=== PATIENT | female | born 2005 | race Caucasian/White ===

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

== ENCOUNTER 2024-04-18 18:57 | Emergency (ER) | payer OTHER, SELFPAY ==
[~2024-04-18] VITALS: Ht 157.5 cm; Wt 61.4 kg
[~2024-04-18 18:57] MED LIST changes: +BACT800T5 PO; +FLOM0.4C39 PO; -METHACHOLINE KIT (J7674) INH ONE; +ONDA-282 PO; +OXYC1TAB23 PO
[2024-04-18 20:44] VITALS: BP 118/71; TEMP 96.4; O2SAT 98
== END 2024-04-18 21:01 | disposition home or self-care (01) ==
LOC: M ED 18:57
DX: S83.92XA Sprain of unspecified site of left knee, initial encounter (principal); X50.0XXA Overexertion from strenuous movement or load, initial encounter; Y92.410 Unspecified street and highway as the place of occurrence of the external cause; Y93.02 Activity, running; Y99.9 Unspecified external cause status; Z88.1 Allergy status to other antibiotic agents

== ENCOUNTER → 2024-07-09 | Outpatient (REF) | payer OTHER ==
[2024-07-09 21:19] LABS: APPEARANCE, URINE HAZY (CLEAR); BACTERIA, URINE AUTO 1+ (NEGATIVE); BILIRUBIN, URINE AUTO NEGATIVE (NEGATIVE); BLOOD, URINE BLOOD NEGATIVE (NEGATIVE); CALCIUM OXALATE CRYSTALS MODERATE; COLOR, URINE YELLOW (YELLOW); GLUCOSE, URINE (UA) AUTO NEGATIVE (NEGATIVE); KETONE, URINE AUTO TRACE mg/dL (NEGATIVE); LEUKOCYTE ESTERASE, URINE AUTO TRACE (NEGATIVE); MUCUS, URINE SMALL (NEGATIVE); NITRITE, URINE AUTO NEGATIVE (NEGATIVE); PROTEIN, URINE AUTO NEGATIVE (NEGATIVE); RBC, URINE AUTO 1 /HPF (0-3); SPECIFIC GRAVITY URINE AUTO 1.027 (1.002-1.035); SQUAMOUS EPITHELIAL CELL UR AU 2 /HPF (0-6); WBC, URINE AUTO 3 /HPF (0-3)
== END ==
LOC: M LAB REF 20:44
PROVIDERS: ATTEND Physician Assistant
DX: N39.0 Urinary tract infection, site not specified (principal)

== ENCOUNTER 2025-03-24 07:04 | Emergency (ER) | payer OTHER ==
[~2025-03-24] VITALS: Ht 157.5 cm; Wt 64.0 kg
[~2025-03-24 07:04] MED LIST changes: -FLOM0.4C39 PO; +TAMS-18 PO
[2025-03-24 07:48] LABS: BASO # 0.0 10^3/uL (0.0-0.2); BASO % 0.2 % (0.0-1.0); EOS # 0.1 10^3/uL (0.0-0.5); EOS % 0.6 % (0.0-3.0); LYMPH # 1.9 10^3/uL (1.5-5.0); LYMPH % 15.2 % (24.0-44.0); MONO # 0.7 10^3/uL (0.0-0.8); MONO % 5.4 % (2.0-8.0); NEUTROPHILS # 9.9 10^3/uL (1.5-8.5); NEUTROPHILS % 78.1 % (36.0-66.0); PLATELET COUNT, AUTOMATED 289 10^3/uL (150-450)
[2025-03-24] MEDS: ONDANSETRON 4MG 2ML VIAL IV ONE ×2 (07:50→12:33)
[2025-03-24] MEDS: KETOROLAC 30 MG/ML 1 ML VIAL IV ONE (07:51)
[2025-03-24] MEDS: NS (Normal Saline) 0.9% 1,000 ML IV ONE (07:51)
[2025-03-24] MEDS ORDERED: ISOVUE-370 76% 100 ML VIAL As Ordered ONE (08:03)
[2025-03-24 08:13] LABS: KETONE, URINE AUTO RFX 1+ mg/dL (NEGATIVE); MUCUS, URINE RFX SMALL (NEGATIVE); NITRITE, URINE AUTO RFX NEGATIVE (NEGATIVE); RBC, URINE AUTO RFX TNTC /HPF (0-3); SQUAM EPITHELIAL CELL UR AURFX 3 /HPF (0-6); WBC, URINE AUTO RFX 10 /HPF (0-3)
[2025-03-24 08:21] LABS: LEUKOCYTE ESTERASE UR AUTO RFX TRACE (NEGATIVE)
[2025-03-24 08:24] LABS: ALT/SGPT 31 U/L (7.0-40); AST/SGOT 21 U/L (<34); CALCIUM LEVEL 9.5 MG/DL (8.5-10.1); CARBON DIOXIDE LEVEL 23 MMOL/L (20-31); CHLORIDE LEVEL 105 MMOL/L (98-107); CREATININE FOR GFR 0.81 MG/DL (0.55-1.30); GLOMERULAR FILTRATION RATE > 90.0 (>60); POTASSIUM SERUM 4.0 MMOL/L (3.5-5.1); SODIUM LEVEL 141 MMOL/L (136-145)
[2025-03-24] MEDS: MORPHINE 4 MG/ML 1 ML VIAL IV ONE (08:47)
[2025-03-24 08:51] LABS: HCG, SERUM QUALITATIVE NEGATIVE (NEGATIVE)
[2025-03-24] MEDS ORDERED: TAMS-18 PO (11:30)
[2025-03-24] MEDS ORDERED: CIPR-249 PO (11:30)
[2025-03-24] MEDS ORDERED: KETO-204 PO (11:30)
[2025-03-24] MEDS: ACETAMINOPHEN *IV* 1,000 MG in IV 1 EA IV ONE (12:09)
[2025-03-24 12:11] VITALS: BP 111/72
[2025-03-24 13:00] VITALS: O2SAT 98
[2025-03-24] MEDS ORDERED: ONDA-282 PO (13:28)
[2025-03-24 13:31] VITALS: TEMP 97.1
== END 2025-03-24 13:50 | disposition home or self-care (01) ==
LOC: M ED 07:04
DX: N20.0 Calculus of kidney (principal); Z87.442 Personal history of urinary calculi; Z88.0 Allergy status to penicillin; Z79.899 Other long term (current) drug therapy
CPT/HCPCS: 74177; 80047; 80048; 80076; 81001; 83605; 83690; 84702; 84703; 85025; 87086; 96365; 96375; 99284; J0131; J1885; J2405; J2765; Q9967